=== PATIENT | male | born 1990 | race African-American/Black ===

== ENCOUNTER 2018-07-14 18:07 | Emergency (ER) | payer SELFPAY | END 2018-07-14 18:58 | disposition home or self-care (01) | LOC: ERS 18:07 | DX: J45.901 Unspecified asthma with (acute) exacerbation (principal); F17.210 Nicotine dependence, cigarettes, uncomplicated; Z71.6 Tobacco abuse counseling | CPT/HCPCS: 99406; J7620 ==

== ENCOUNTER 2024-08-30 23:52 | Emergency (ER) | payer BC, SELFPAY ==
[2024-08-31] MEDS ORDERED: Lidocaine 1% MPF 2 ML VIAL ONE (00:07)
[2024-08-31] MEDS ORDERED: Azithromycin 250 MG TAB ONE (00:07)
[2024-08-31] MEDS ORDERED: cefTRIAXone (ROCEPHIN) 500 MG VIAL ONE (00:07)
[2024-08-31 00:47] LABS: Bacteria/HPF None Seen HPF (None Seen); Bilirubin Negative (Negative); Blood, Urine Negative (Negative); CAUTI Indications for Culture Acute Hematuria; Clarity Clear (Clear); Glucose, Urine (Dipstick) Normal (Negative); Ketone, Urine Negative (Negative); Leukocyte 75 Leu/uL (Negative); Nitrite Negative (Negative); Protein, Urine (Dipstick) Negative (Neg-Trace); RBC/HPF 0-3 HPF (0-3); Specific Gravity, Urine 1.014 (1.002-1.036); Squamous Epithelial None Seen HPF (0-3); Urobilinogen Normal mg/dL (Less than 2)
[2024-08-31 00:49] LABS: Urine Culture Reflex Yes Yes
[2024-08-31 06:42] LABS: Chlam.trachomatis by PCR,Urine DETECTED (NotDetected); GC N.gonorrhoeae PCR,UrineVOID Not Detected (NotDetected)
== END 2024-08-31 01:30 | disposition home or self-care (01) ==
LOC: ERS 23:52
DX: R36.9 Urethral discharge, unspecified (principal); F17.210 Nicotine dependence, cigarettes, uncomplicated; J45.909 Unspecified asthma, uncomplicated; Z79.51 Long term (current) use of inhaled steroids
CPT/HCPCS: 81001; 87086; 87491; 87591; 96372; 99283; J0696